=== PATIENT | female | born 1995 | race African-American/Black ===

== ENCOUNTER 2017-04-05 19:49 | Emergency (ER) | payer SELFPAY ==
[~2017-04-05] VITALS: Ht 160 cm; Wt 54.0 kg
[2017-04-05] MEDS ORDERED: SODIUM CHLOR 0.9% 1000 ML INJ 1,000 ML IV ONE (19:56)
--- NOTE | 2017-04-05 19:56 | PD ---
HPI Chief Complaint: seizure Time Seen by Provider: 19:56 (Marah William) Time Seen by Provider: 19:56 (Polly Fernandez MD) Travel History International Travel<30 days: No Contact w/Intl Traveler<30days: No Traveled to known affect area: No (Marah William) History of Present Illness HPI 21-year-old female with history of seizure disorder, presents to emergency department for evaluation following an unwitnessed seizure. Patient was found on the bathroom floor, [facility] was called. When they arrived they reported the patient being postictal. She was awake and arousable. She was nonverbal at the time but during transfer, she began communicating with head nods. She was following commands with no focal deficits are noted. Here she is alert and following commands. Patient has been out of her Keppra and has missed doses. She reports head, neck, and thoracic spine. Denies any recent illnesses, fevers , chills. Denies any chance of . She has no other symptoms to report at this time. (Marah William) [facility] Past Medical History Seizures: Yes (Marah William) Social History Alcohol Use: No Tobacco Use: No Substance Use: No (Marah William) Allergies-Medications (Allergen,Severity, Reaction): Coded Allergies: iodine (Verified Allergy, Unknown, 04/05/17) Reported Meds & Prescriptions Reported Meds & Active Scripts Active Keppra (Levetiracetam) 1,000 Mg Tab 1,000 Mg PO BID Reported Keppra (Levetiracetam) 1,000 Mg Tab 1,000 Mg PO BID (Polly Fernandez MD) Review of Systems Except as stated in HPI: all other systems reviewed are Neg (Marah William) Physical Exam Narrative GENERAL: Well-nourished female patient, lying in bed in no acute distress. SKIN: Focused skin assessment warm/dry. HEAD:Normocephalic. No tenderness elicited palpation. No obvious trauma. EYES: Pupils equal and round. No scleral icterus. No injection or drainage. EOMI. ENT: Mucosa pink and moist. No erythema or exudates. No uvular edema. No uvular , palatal, or tonsillar deviation. Airway patent. Nasal turbinates appear normal without nasal blood, purulent drainage or septal hematoma. Tongue is without any trauma or bite nguyen. DENTAL: No loose or chipped teeth. No malocclusion. NECK: Trachea midline. No JVD. Cervical collar is in place. CARDIOVASCULAR: Elevated rate and rhythm. No murmur appreciated. RESPIRATORY: No accessory muscle use. Clear to auscultation. Breath sounds equal bilaterally. Tenderness elicited palpation of the thoracic cage. Even respirations. No crepitus. GASTROINTESTINAL: Abdomen soft, non-tender, nondistended. Hepatic and splenic margins not palpable. MUSCULOSKELETAL: No obvious deformities. No clubbing. No cyanosis. No edema. Thoracic spine tenderness to palpation. NEUROLOGICAL: Awake and alert. No obvious cranial nerve deficits. Motor grossly within normal limits. Normal speech. PSYCHIATRIC: Appropriate mood and affect; insight and judgment normal. (Marah William) Data Data Last Documented VS Vital Signs Date Time Temp Pulse Resp B/P (MAP) Pulse Ox O2 Delivery O2 Flow Rate FiO2 04/05/17 21:51 98.3 04/05/17 20:02 99 Room Air 04/05/17 19:59 97 18 121/70 (87) (Polly Fernandez MD) Orders Orders Complete Blood Count With Diff (04/05/17 19:56) Alcohol (Ethanol) (04/05/17 19:56) Drug Screen, Random Urine (04/05/17 19:56) Ct Brain W/O Iv Contrast(Rout) (04/05/17 ) Blood Glucose (04/05/17 19:56) Ecg Monitoring (04/05/17 19:56) Iv Access Insert/Monitor (04/05/17 19:56) Oximetry (04/05/17 19:56) Comprehensive Metabolic Panel (04/05/17 19:56) Sodium Chlor 0.9% 1000 Ml Inj (Ns 1000 M (04/05/17 19:56) Sodium Chloride 0.9% Flush (Ns Flush) (04/05/17 20:00) Ed Urine Pregnancytest Poc (04/05/17 19:56) Ct Cerv Spine W/O Contrast (04/05/17 ) Spine, Thoracic-Ap/Lat/Sw(3vw) (04/05/17 ) Levetiracetam Inj (Keppra Inj) (04/05/17 20:00) Magnesium (Mg) (04/05/17 20:02) Electrocardiogram (04/05/17 20:05) Remove Cervical Collar (04/05/17 21:40) Ed Discharge Order (04/05/17 21:53) (Polly Fernandez MD) Labs Laboratory Tests Test 04/05/17 20:10 White Blood Count 6.9 TH/MM3 Red Blood Count 4.32 MIL/MM3 Hemoglobin 12.0 GM/DL Hematocrit 36.2 % Mean Corpuscular Volume 83.7 FL Mean Corpuscular Hemoglobin 27.8 PG Mean Corpuscular Hemoglobin Concent 33.2 % Red Cell Distribution Width 16.9 % Platelet Count 147 TH/MM3 Mean Platelet Volume 8.7 FL Neutrophils (%) (Auto) 66.5 % Lymphocytes (%) (Auto) 15.4 % Monocytes (%) (Auto) 14.2 % Eosinophils (%) (Auto) 3.5 % Basophils (%) (Auto) 0.4 % Neutrophils # (Auto) 4.6 TH/MM3 Lymphocytes # (Auto) 1.1 TH/MM3 Monocytes # (Auto) 1.0 TH/MM3 Eosinophils # (Auto) 0.2 TH/MM3 Basophils # (Auto) 0.0 TH/MM3 CBC Comment DIFF FINAL Differential Comment Blood Urea Nitrogen 9 MG/DL Creatinine 0.86 MG/DL Random Glucose 77 MG/DL Total Protein 7.9 GM/DL Albumin 3.6 GM/DL Calcium Level 8.6 MG/DL Alkaline Phosphatase 58 U/L Aspartate Amino Transf (AST/SGOT) 16 U/L Alanine Aminotransferase (ALT/SGPT) 13 U/L Total Bilirubin 0.2 MG/DL Sodium Level 139 MEQ/L Potassium Level 3.5 MEQ/L Chloride Level 105 MEQ/L Carbon Dioxide Level 25.7 MEQ/L Anion Gap 8 MEQ/L Estimat Glomerular Filtration Rate 83 ML/MIN Magnesium Level 1.7 MG/DL Ethyl Alcohol Level LESS THAN 3 MG/DL (Polly Fernandez MD) [facility] Medical Decision Making Medical Screen Exam Complete: Yes Emergency Medical Condition: Yes Medical Record Reviewed: Yes Differential Diagnosis Seizure disorder versus electrolyte abnormality versus medication noncompliance. Versus minor head injury versus intracranial hemorrhage versus fracture versus muscle strain Narrative Course 21-year-old female presents to the emergency department after being found on the bathroom floor. This was likely from an unwitnessed seizure as patient does have a seizure disorder and has not been taking her medication due to it being out. Lab work and imaging studies are ordered. Patient is given IV bolus of Keppra. Laboratory Tests Test 04/05/17 20:10 White Blood Count 6.9 TH/MM3 Red Blood Count 4.32 MIL/MM3 Hemoglobin 12.0 GM/DL Hematocrit 36.2 % Mean Corpuscular Volume 83.7 FL Mean Corpuscular Hemoglobin 27.8 PG Mean Corpuscular Hemoglobin Concent 33.2 % Red Cell Distribution Width 16.9 % Platelet Count 147 TH/MM3 Mean Platelet Volume 8.7 FL Neutrophils (%) (Auto) 66.5 % Lymphocytes (%) (Auto) 15.4 % Monocytes (%) (Auto) 14.2 % Eosinophils (%) (Auto) 3.5 % Basophils (%) (Auto) 0.4 % Neutrophils # (Auto) 4.6 TH/MM3 Lymphocytes # (Auto) 1.1 TH/MM3 Monocytes # (Auto) 1.0 TH/MM3 Eosinophils # (Auto) 0.2 TH/MM3 Basophils # (Auto) 0.0 TH/MM3 CBC Comment DIFF FINAL Differential Comment Blood Urea Nitrogen 9 MG/DL Creatinine 0.86 MG/DL Random Glucose 77 MG/DL Total Protein 7.9 GM/DL Albumin 3.6 GM/DL Calcium Level 8.6 MG/DL Alkaline Phosphatase 58 U/L Aspartate Amino Transf (AST/SGOT) 16 U/L Alanine Aminotransferase (ALT/SGPT) 13 U/L Total Bilirubin 0.2 MG/DL Sodium Level 139 MEQ/L Potassium Level 3.5 MEQ/L Chloride Level 105 MEQ/L Carbon Dioxide Level 25.7 MEQ/L Anion Gap 8 MEQ/L Estimat Glomerular Filtration Rate 83 ML/MIN Magnesium Level 1.7 MG/DL Ethyl Alcohol Level LESS THAN 3 MG/DL Last Impressions Thoracic Spine X-Ray 04/05/17 0000 Signed Impressions: Service Date/Time: Wednesday, April 05, 2017 20:33 - CONCLUSION: Thoracic spine series within normal limits. Grady Valenzuela MD Head CT 04/05/17 0000 Signed Impressions: Service Date/Time: Wednesday, April 05, 2017 20:39 - CONCLUSION: No acute intracranial findings. Grady Valenzuela MD Cervical Spine CT 04/05/17 0000 Signed Impressions: Service Date/Time: Wednesday, April 05, 2017 20:40 - CONCLUSION: No evidence of fracture. Grady Valenzuela MD I have reviewed the lab work and radiology results. The mother is at bedside. Patient is awake and alert following all commands with no focal deficits or weakness. I discussed patient with my attending physician. Patient will be discharged home with a Prescription. She is encouraged follow-up with a primary care provider and return immediately with any acute worsening of symptoms. (Marah William) Medical Screen Exam Complete: Yes Emergency Medical Condition: Yes Differential Diagnosis Seizure, medication noncompliance, electrolyte abnormality, intracranial hemorrhage Narrative Course The history, exam, and medical decision-making in the associated midlevel provider note were completed with my assistance. I reviewed and agree with the findings presented. I attest that I had a [id number] encounter with the patient on the same day, and personally performed and documented my assessment and findings in the medical record. *My assessment and Findings: This is a 21-year-old female who presents to the emergency department having been found on the floor by her mother. She likely had a seizure. She has a history of seizure disorder but she has not been taking her medication. She has a normal exam and normal CT and lab work. Pt. will be discharged with Keppra and was loaded in the emergency department. (Polly Fernandez MD) Diagnosis Primary Impression: Seizure Referrals: Neurologist Primary Care Physician Patient Instructions: General Instructions, Recurrent Seizures in Adults (ED) Additional Instructions: Take your medication as prescribed Follow-up with a primary care provider Return immediately with any acute worsening of symptoms Med/Other Pt SpecificInfo: Prescription(s) given (Marah William) Scripts Levetiracetam (Keppra) 1,000 Mg Tab 1000 MG PO BID for Control Seizures, #60 TAB 0 Refills Prov: Marah William 04/05/17 Disposition: 01 DISCHARGE HOME Condition: Stable Marah William Apr 05, 2017 19:56 Polly Fernandez MD Apr 05, 2017 22:15
[2017-04-05 19:59] VITALS: BP 121/70; PULSE 97; RESP 18; O2SAT 100
[2017-04-05] MEDS ORDERED: SODIUM CHLORIDE 0.9% FLUSH 10 ML FLUSH IVF PRN (20:00)
[2017-04-05] MEDS ORDERED: levETIRAcetam INJ 100 ML IV ONE (20:00)
[2017-04-05 20:32] LABS: AUTOMATED NEUTROPHIL # 4.6 TH/MM3 (1.8-7.7); BASOPHIL % 0.4 % (0.0-2.0); EOSINOPHIL # 0.2 TH/MM3 (0-0.4); EOSINOPHIL % 3.5 % (0.0-4.0); HEMATOCRIT 36.2 % (35.0-46.0); LYMPH % 15.4 % (9.0-44.0); LYMPHOCYTE # 1.1 TH/MM3 (1.0-4.8); MEAN CELL VOLUME 83.7 FL (80.0-100.0); MEAN CORPUSCULAR HEMOGLOBIN 27.8 PG (27.0-34.0); MEAN CORPUSCULAR HGB CONC 33.2 % (32.0-36.0); MEAN PLATELET VOLUME 8.7 FL (7.0-11.0); MONO % 14.2 % (0.0-8.0); NEUT % 66.5 % (16.0-70.0); PLATELET COUNT 147 TH/MM3 (150-450); RED BLOOD COUNT 4.32 MIL/MM3 (4.00-5.30); RED CELL DISTRIBUTION WIDTH 16.9 % (11.6-17.2); WHITE BLOOD COUNT 6.9 TH/MM3 (4.0-11.0)
[2017-04-05 20:48] LABS: ALBUMIN 3.6 GM/DL (3.4-5.0); ALT (GPT) 13 U/L (10-53); AST (GOT) 16 U/L (15-37); BICARBONATE 25.7 MEQ/L (21.0-32.0); BLOOD UREA NITROGEN 9 MG/DL (7-18); CALCIUM 8.6 MG/DL (8.5-10.1); CHLORIDE 105 MEQ/L (98-107); CREATININE 0.86 MG/DL (0.50-1.00); GLOMERULAR FILTRATION RATE 83 ML/MIN (>89); GLUCOSE,RANDOM 77 MG/DL (74-106); SODIUM (NA) 139 MEQ/L (136-145)
[2017-04-05 20:51] LABS: ALKALINE PHOSPHATASE 58 U/L (45-117); TOTAL BILIRUBIN ADULT 0.2 MG/DL (0.2-1.0); TOTAL PROTEIN 7.9 GM/DL (6.4-8.2)
--- NOTE | 2017-04-05 21:28 | RADRPT ---
EXAM DATE/TIME: 04/05/2017 20:33 [facility] COMPARISON: No previous studies available for comparison. INDICATIONS : Pain from fall. MEDICAL HISTORY : None. SURGICAL HISTORY : None. ENCOUNTER: Initial ACUITY: 1 day PAIN SCORE: 5/10 LOCATION: Upper back. FINDINGS: 3 views of the thoracic spine. Bone alignment within normal limits. No evidence of fracture. CONCLUSION: Thoracic spine series within normal limits. Grady Valenzuela MD on April 05, 2017 at 21:26 Board Certified Radiologist. This report was verified electronically.
--- NOTE | 2017-04-05 21:29 | RADRPT ---
EXAM DATE/TIME: 04/05/2017 20:39 [facility] COMPARISON: No previous studies available for comparison. INDICATIONS : Seizure activity and LOC RADIATION DOSE: 56.77 CTDIvol (mGy) MEDICAL HISTORY : Seizures. Diabetes mellitus type 2. SURGICAL HISTORY : None. ENCOUNTER: Initial ACUITY: 1 day PAIN SCALE: 4/10 LOCATION: cranial TECHNIQUE: Multiple contiguous axial images were obtained of the head. Using automated exposure control and adj ustment of the mA and/or kV according to patient size, radiation dose was kept as low as reasonably a chievable to obtain optimal diagnostic quality images. DICOM format image data is available electro nically for review and comparison. FINDINGS: CEREBRUM: The ventricles are normal for age. No evidence of midline shift, mass lesion, hemorrhage or acute in farction. No extra-axial fluid collections are seen. POSTERIOR FOSSA: The cerebellum and brainstem are intact. The 4th ventricle is midline. The cerebellopontine angle i s unremarkable. EXTRACRANIAL: The visualized portion of the orbits is intact. SKULL: The calvaria is intact. No evidence of skull fracture. CONCLUSION: No acute intracranial findings. Grady Valenzuela MD on April 05, 2017 at 21:27 Board Certified Radiologist. This report was verified electronically.
--- NOTE | 2017-04-05 21:37 | RADRPT ---
EXAM DATE/TIME: 04/05/2017 20:40 [facility] COMPARISON: No previous studies available for comparison. INDICATIONS : Seizure activity and LOC RADIATION DOSE: 29.60 CTDIvol (mGy) MEDICAL HISTORY : Seizures. Diabetes mellitus type 2. SURGICAL HISTORY : None. ENCOUNTER: Initial ACUITY: 1 day PAIN SCALE: 4/10 LOCATION: neck TECHNIQUE: Volumetric scanning of the cervical spine was performed. Multiplanar reconstructions in the sagittal, coronal and oblique axial planes were performed. Using automated exposure control and adjustment o f the mA and/or kV according to patient size, radiation dose was kept as low as reasonably achievable to obtain optimal diagnostic quality images. DICOM format image data is available electronically f or review and comparison. FINDINGS: VERTEBRAE: Normal vertebral body height. ALIGNMENT: No evidence of subluxation. C2-C3: The bony spinal canal is normal in size. No evidence of disc bulge or herniation. The neural forami na are bilaterally patent. C3-C4: The bony spinal canal is normal in size. No evidence of disc bulge or herniation. The neural forami na are bilaterally patent. C4-C5: The bony spinal canal is normal in size. No evidence of disc bulge or herniation. The neural forami na are bilaterally patent. C5-C6: The bony spinal canal is normal in size. No evidence of disc bulge or herniation. The neural forami na are bilaterally patent. C6-C7: The bony spinal canal is normal in size. No evidence of disc bulge or herniation. The neural forami na are bilaterally patent. C7-T1: The bony spinal canal is normal in size. No evidence of disc bulge or herniation. The neural forami na are bilaterally patent. CONCLUSION: No evidence of fracture. Grady Valenzuela MD on April 05, 2017 at 21:32 Board Certified Radiologist. This report was verified electronically.
[2017-04-05] MEDS ORDERED: KEPP10002 PO ×2 (21:43→22:00)
[2017-04-05 21:51] VITALS: TEMP 98.3
--- NOTE | 2017-04-06 17:07 | EKG ---
Date Performed: 04/05/2017 Time Performed: 20:05:59 PTAGE: 21 years EKG: Sinus rhythm NORMAL ECG NO PREVIOUS TRACING DOCTOR: Bárbara Malave Interpretating Date/Time 04/06/2017 17:07:04
== END 2017-04-05 22:34 | disposition home or self-care (01) ==
LOC: NEPC 19:49
DX: R56.9 Unspecified convulsions (principal); E11.9 Type 2 diabetes mellitus without complications
CPT/HCPCS: 70450; 72072; 72125; 80053; 80307; 83735; 84703; 85025; 93005; 96374; 99285; J1953; J7030

== ENCOUNTER 2017-04-28 21:54 | Emergency (ER) | payer SELFPAY ==
[~2017-04-28] VITALS: Ht 162.6 cm; Wt 54.0 kg
[~2017-04-28 21:54] MED LIST: KEPP10002 PO
[2017-04-28 22:07] VITALS: BP 129/80; PULSE 86; RESP 18; TEMP 98.4; O2SAT 99
[2017-04-28 22:11] VITALS: BP 129/80; PULSE 89; RESP 18; O2SAT 100
[2017-04-28] MEDS ORDERED: SODIUM CHLOR 0.9% 1000 ML INJ 1,000 ML IV ONE (22:30)
[2017-04-28] MEDS ORDERED: FAMOTIDINE 20 MG/2 ML VIAL IV PUSH SCH (22:30)
[2017-04-28] MEDS ORDERED: ONDANSETRON HCL 4 MG/2 ML VIAL IV PUSH ONE (22:30)
--- NOTE | 2017-04-28 22:33 | PD ---
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 She ate some shrimp tonight and started to feel tingling in her lips and itching underneath her chin. She then drank a liquid Benadryl without measuring it possibly half of the bottle. She then started having severe abdominal pain she denies nausea vomiting she denies closing of her throat she denies stridor or wheezing. She is history of asthma as well [facility].. Now patient is in the ER she has no signs of respiratory distress she has no obvious stridor she does not look to be in any's form of airway compromise. She feels the Benadryl helped with the shrimp allergy but it is made her stomach hurt she is not having any visual complaints she has no signs of the anticholinergic overdose which I described to her she denies any of those symptoms. However possibly she is having abdominal pain from Benadryl overdose PFS Past Medical History Asthma: Yes Diabetes: Yes Seizures: Yes Tetanus Vaccination: Unknown Influenza Vaccination: No ?: Unknown LMP: 03/15/17 Past Surgical History Surgical History: No Previous Surgery Social History Alcohol Use: No Tobacco Use: No Substance Use: Yes (marijuana) Allergies-Medications (Allergen,Severity, Reaction): Coded Allergies: iodine (Verified Allergy, Unknown, 04/05/17) Reported Meds & Prescriptions Reported Meds & Active Scripts Active Reported Keppra (Levetiracetam) 1,000 Mg Tab 1,000 Mg PO BID Review of Systems Except as stated in HPI: all other systems reviewed are Neg HENT: No: Sore Throat Gastrointestinal: Positive: Nausea, Abdominal Pain Physical Exam Narrative GENERAL: Patient is no stridor no respiratory distress no swelling of the lips or obvious from initial eval SKIN: Warm and dry. HEAD: Atraumatic. Normocephalic. EYES: Pupils equal and round. No scleral icterus. No injection or drainage. ENT: No nasal bleeding or discharge. Mucous membranes pink and moist. Posterior pharynx is not swollen the uvula is normal size NECK: Trachea midline. No JVD. No stridor auscultated at the nape of the neck CARDIOVASCULAR: Regular rate and rhythm. RESPIRATORY: No accessory muscle use. Clear to auscultation. Breath sounds equal bilaterally. No wheezes auscultated GASTROINTESTINAL: Abdomen epigastric-tender, nondistended. Hepatic and splenic margins not palpable. MUSCULOSKELETAL: Extremities without clubbing, cyanosis, or edema. No obvious deformities. NEUROLOGICAL: Awake and alert. No obvious cranial nerve deficits. Motor grossly within normal limits. Five out of 5 muscle strength in the arms and legs. Normal speech. PSYCHIATRIC: Appropriate mood and affect; insight and judgment normal. Data Data Last Documented VS Vital Signs Date Time Temp Pulse Resp B/P (MAP) Pulse Ox O2 Delivery O2 Flow Rate FiO2 04/29/17 01:38 04/29/17 01:37 82 16 100 Room Air 04/28/17 22:07 98.4 Orders Orders Ed Urine Pregnancytest Poc (04/28/17 22:25) Famotidine Inj (Pepcid Inj) (04/28/17 22:30) Sodium Chlor 0.9% 1000 Ml Inj (Ns 1000 M (04/28/17 22:30) Ondansetron Inj (Zofran Inj) (04/28/17 22:30) Ed Discharge Order (04/29/17 01:11) Electrocardiogram (04/28/17 22:48) MDM Medical Decision Making Medical Screen Exam Complete: Yes Emergency Medical Condition: Yes Differential Diagnosis Allergic reaction versus Benadryl overdose Narrative Course Physical exam shows no respiratory involvement airway is open posterior pharynx is normal Pepcid IV and Zofran IV patient feels much better observed for 4 hours no signs of airway involvement discharged home Diagnosis Primary Impression: Allergic reaction Qualified Codes: T78.40XA - Allergy, unspecified, initial encounter Patient Instructions: Allergies (ED), General Instructions Disposition: 01 DISCHARGE HOME Condition: Good Jovanni Colon MD Apr 28, 2017 22:33
[2017-04-29 01:37] VITALS: BP 129/58; PULSE 82; RESP 16; O2SAT 100
--- NOTE | 2017-04-29 22:10 | EKG ---
Date Performed: 04/28/2017 Time Performed: 22:48:14 PTAGE: 21 years EKG: Sinus rhythm NORMAL ECG PREVIOUS TRACING : 04/05/2017 20.05 Since previous tracing, no significant change noted DOCTOR: Michael Wilhelm Interpretating Date/Time 04/29/2017 22:10:05
== END 2017-04-29 01:38 | disposition home or self-care (01) ==
LOC: NEPC 21:54
DX: T78.40XA Allergy, unspecified, initial encounter (principal); R10.9 Unspecified abdominal pain; R11.0 Nausea; J45.909 Unspecified asthma, uncomplicated; E11.9 Type 2 diabetes mellitus without complications; R56.9 Unspecified convulsions; Z79.899 Other long term (current) drug therapy
CPT/HCPCS: 84703; 93005; 96374; 96375; 99284; J2405; J7030

== ENCOUNTER 2017-06-29 08:02 | Emergency (ER) | payer SELFPAY ==
[2017-06-29 08:11] VITALS: BP 103/63; PULSE 99; RESP 20; TEMP 99.2; O2SAT 99
--- NOTE | 2017-06-29 09:24 | PD ---
HPI Chief Complaint: Cold / Flu Symptoms Time Seen by Provider: 09:16 Travel History International Travel<30 days: No Contact w/Intl Traveler<30days: No Traveled to known affect area: No History of Present Illness HPI 22-year-old female with PMH of DM T2, asthma presents to the ED for evaluation of less than 24 hour history of sinus congestion, clear rhinorrhea, sore throat , cough occasionally productive of white mucus. Patient endorses chills, has not measured a fever at home. She endorses nausea without vomiting. She denies ear pain, shortness of breath, history of seasonal allergies. She endorses many sick contacts. No treatment attempt at home. She smokes marijuana. She states her blood sugars have been "good." PFSH Past Medical History Asthma: Yes Diabetes: Yes Seizures: Yes ?: Not Social History Alcohol Use: No Tobacco Use: No Substance Use: Yes (marijuana) Allergies-Medications (Allergen,Severity, Reaction): Coded Allergies: iodine (Verified Allergy, Unknown, 04/05/17) Reported Meds & Prescriptions Reported Meds & Active Scripts Active Proair Hfa 8.5 GM Inh (Albuterol Sulfate) 90 Mcg/Act Aer 2 Puff INH Q4-6H PRN 108 mcg/actuation Ronda-D 24 Hour Allergy (Fexofenadine-Pseudoephedrine ER 24 HR) 180-240 Yissel 1 Tab PO DAILY Tessalon Perles (Benzonatate) 100 Mg Cap 200 Mg PO TID PRN Reported Keppra (Levetiracetam) 1,000 Mg Tab 1,000 Mg PO BID Review of Systems Except as stated in HPI: all other systems reviewed are Neg Physical Exam Narrative GENERAL: Well-nourished, well-developed AA female in no acute distress. SKIN: Warm and dry. HEAD: Normocephalic. Atraumatic. EYES: No scleral icterus. No injection or drainage. PERRLA. EOMI. ENT: Pearly alvarez tympanic membranes bilaterally. Nasal mucosa is moist. Oropharynx without edema or exudate. Mild posterior oropharyngeal erythema/ cobblestoning. NECK: Supple, trachea midline. No JVD or lymphadenopathy. CARDIOVASCULAR: Regular rate and rhythm without murmurs, gallops, or rubs. RESPIRATORY: Breath sounds clear and equal bilaterally. No accessory muscle use. GASTROINTESTINAL: Abdomen soft, non-tender, nondistended. + Bowel sounds MUSCULOSKELETAL: No cyanosis, or edema. BACK: Nontender without obvious deformity. No CVA tenderness. Data Data Last Documented VS Vital Signs Date Time Temp Pulse Resp B/P (MAP) Pulse Ox O2 Delivery O2 Flow Rate FiO2 06/29/17 08:11 99.2 99 20 103/63 (76) 99 Orders Orders Influenzae A/B Antigen (06/29/17 08:13) Ed Discharge Order (06/29/17 09:46) MDM Medical Decision Making Medical Screen Exam Complete: Yes Emergency Medical Condition: Yes Differential Diagnosis Viral syndrome versus influenza versus pharyngitis versus strep pharyngitis versus asthma exacerbation versus other Narrative Course 22-year-old female with PMH of DM T2, asthma presents to the ED for evaluation of less than 24 hour history of sinus congestion, clear rhinorrhea, sore throat , cough occasionally productive of white mucus. Patient endorses chills, has not measured a fever at home. She endorses nausea without vomiting. She denies ear pain, shortness of breath, history of seasonal allergies. She endorses many sick contacts. She smokes marijuana. She states her blood sugars have been "good." Patient is afebrile on presentation. Exam reveals mild posterior erythema/cobblestoning. This is viral syndrome, likely coupled with seasonal allergies. Patient's prescribed a few doses of Tessalon and Ronda-D. She is instructed to continue with symptomatic treatment, return for worsening symptoms. She is stable and discharged home. Diagnosis Primary Impression: Viral syndrome Referrals: [facility] Departure Forms: Tests/Procedures, Work Release Enter return to work date: Jun 30, 2017 Additional Instructions: Rest, hydrate. Push fluids such as sports drinks, Pedialyte, popsicles, clear broth. Continue with symptomatic treatment. Alternating Motrin and Tylenol every 4-6 hours as needed for fever, body aches. Increase handwashing frequently to avoid the spread of the virus to other family members and the community. Disinfect commonly touched surfaces such as light switches, microwaves, remote controls. Replace toothbrush at the end of this illness. Follow-up with the primary care provider this week. Return to the ED for any urgent or emergent medical condition. Med/Other Pt SpecificInfo: Prescription(s) given Scripts Albuterol 8.5 GM Inh (Proair Hfa 8.5 GM Inh) 90 Mcg/Act Aer 2 PUFF INH Q4-6H Y for SHORTNESS OF BREATH, #1 INHALER 0 Refills 108 mcg/actuation Prov: David Joyce MD 06/29/17 Fexofenadine-Pseudoephedrine ER 24 HR (Ronda-D 24 Hour Allergy) 180-240 Yissel 1 TAB PO DAILY for Allergy Management, #30 TAB 0 Refills Prov: David Joyce MD 06/29/17 Benzonatate (Tessalon Perles) 100 Mg Cap 200 MG PO TID Y for COUGH, #20 CAP 0 Refills Prov: David Joyce MD 06/29/17 Disposition: 01 DISCHARGE HOME Condition: Stable Clarissa Rocha Jun 29, 2017 09:24
[2017-06-29] MEDS ORDERED: FEXO1TAB97 PO (09:25)
[2017-06-29] MEDS ORDERED: BENZ100 PO (09:25)
[2017-06-29] MEDS ORDERED: ALBUAER3 INH (09:25)
== END 2017-06-29 10:04 | disposition home or self-care (01) ==
LOC: NEPK 08:02
DX: B34.9 Viral infection, unspecified (principal); F12.90 Cannabis use, unspecified, uncomplicated; J45.909 Unspecified asthma, uncomplicated
CPT/HCPCS: 87804; 99283